=== PATIENT | female | born 1950 | race African-American/Black ===

== ENCOUNTER 2017-09-05 07:17 | Outpatient (CLI) | payer BC ==
--- NOTE | 2017-09-05 08:49 | Mammography Report ---
Screening mammogram: Routine views demonstrates an area of possible Asymmetry in the lateral left breast. This is not clearly identified in the lateral projection. With this exception the fibroglandular pattern is symmetric and otherwise unremarkable and unchanged from prior exams dating back to 2015. CAD used. Impression: Questionable new left asymmetry. Recommendation: Additional compression imaging and ultrasound as needed. BI-RADS CATEGORY: 0 = Needs additional imaging evaluation ACR BI-RADS MAMMOGRAPHIC CODES: 0 = Needs additional imaging evaluation; 1 = Negative; 2 = Benign; 3 = Probably benign; 4 = Suspicious; 5 = Malignant; 6 = Known biopsy-proven malignancy COMMENT: 1. Dense breast tissue, i.e., adenosis, fibrocystic changes, etc., may obscure an underlying neoplasm. 2. Approximately 10% of cancers are not detected with mammography. 3. A negative mammography report should not delay biopsy if a clinically suspicious mass is present.
== END 2017-09-05 07:18 | disposition home or self-care (01) ==
LOC: MAMMO 07:17
PROVIDERS: ATTEND Family Medicine
DX: Z12.31 Encounter for screening mammogram for malignant neoplasm of breast (principal)
CPT/HCPCS: 77067; G0202

== ENCOUNTER 2017-10-02 07:58 | Outpatient (CLI) | payer BC ==
--- NOTE | 2017-10-02 08:51 | Mammography Report ---
LEFT DIGITAL DIAGNOSTIC MAMMOGRAM : 10/02/17 07:58:00 CLINICAL: Recalled for asymmetry. COMPARISON:09/05/17 screening FINDINGS: ML and spot compression CC views were performed and are negative. IMPRESSION: Negative Mammogram. BI-RADS CATEGORY: 1 -- Negative RECOMMENDATION: Routine mammographic screening in one year. ACR BI-RADS MAMMOGRAPHIC CODES: 0 = Needs additional imaging evaluation; 1 = Negative; 2 = Benign; 3 = Probably benign; 4 = Suspicious; 5 = Malignant; 6 = Known biopsy-proven malignancy COMMENT: 1. Dense breast tissue, i.e., adenosis, fibrocystic changes, etc., may obscure an underlying neoplasm. 2. Approximately 10% of cancers are not detected with mammography. 3. A negative mammography report should not delay biopsy if a clinically suspicious mass is present. COMMENT: Patient follow-up letters are generated via our [employer] application.
== END 2017-10-02 07:59 | disposition home or self-care (01) ==
LOC: MAMMO 07:58
PROVIDERS: ATTEND Family Medicine
DX: R92.8 Other abnormal and inconclusive findings on diagnostic imaging of breast (principal)
CPT/HCPCS: G0206-LT

== ENCOUNTER 2019-08-20 07:51 | Outpatient (CLI) | payer BC ==
--- NOTE | 2019-08-23 10:20 | Mammography Report ---
DIGITAL SCREENING MAMMOGRAM WITH CAD, 08/20/2019 INDICATION: Routine screening mammography. TECHNIQUE: Digital bilateral 2D mammography was obtained in the craniocaudal and mediolateral obliq ue projections. This examination was interpreted with the benefit of Computer-Aided Detection analysi s. COMPARISON: 10/02/2017 FINDINGS: Breast Density: The breasts are heterogeneously dense, which may obscure small masses. There is no evidence of dominant mass, suspicious calcifications or architectural distortion in eithe r breast. IMPRESSION: No mammographic evidence of malignancy. Follow up recommendation: Routine yearly BI-RADS Category 2: Benign. A "normal" or negative report should not discourage follow up or biopsy of a clinically significant f inding. A written summary of these findings will be mailed to the patient. The patient will be entered into a mammography reporting system which will generate a reminder letter for the patient's next appointmen t at the appropriate interval. The [employer] recommends yearly mammograms starting at age 40 and continuing as l crystal as a woman is in good health. Breast MRI is recommended for women with an approximate 20-25% or greater lifetime risk of breast cancer, including women with a strong family history of breast or ova adeline cancer or who have been treated for Hodgkin's disease. Signer Name: Turner Mcfadden MD Signed: 08/23/2019 10:16 AM Workstation Name: [id number]
== END 2019-08-20 07:52 | disposition home or self-care (01) ==
LOC: MAMMO 07:51
PROVIDERS: ATTEND Family Medicine
DX: Z12.31 Encounter for screening mammogram for malignant neoplasm of breast (principal)
CPT/HCPCS: 77067

== ENCOUNTER 2020-09-25 07:33 | Outpatient (CLI) | payer BC ==
--- NOTE | 2020-09-25 08:40 | Mammography Report ---
DIGITAL SCREENING MAMMOGRAM WITH CAD, 09/25/2020 CLINICAL INFORMATION / INDICATION: Routine screening mammography. ROUTINE TECHNIQUE: Digital bilateral 2D mammography was obtained in the craniocaudal and mediolateral obliqu e projections. This examination was interpreted with the benefit of Computer-Aided Detection analysis . COMPARISON: 09/05/2017 and 08/20/2019 FINDINGS: Breast Density: There are scattered areas of fibroglandular density. No dominant mass, suspicious calcifications, or architectural distortion in either breast. There are bilateral vascular calcifications IMPRESSION: No mammographic evidence of malignancy. Follow up recommendation: Routine yearly BI-RADS Category 2: Benign. A "normal" or negative report should not discourage follow up or biopsy of a clinically significant f inding. A written summary of these findings will be mailed to the patient. The patient will be entered into a mammography reporting system which will generate a reminder letter for the patient's next appointmen t at the appropriate interval. The [employer] recommends yearly mammograms starting at age 40 and continuing as l crystal as a woman is in good health. Breast MRI is recommended for women with an approximate 20-25% or greater lifetime risk of breast cancer, including women with a strong family history of breast or ova adeline cancer or who have been treated for Hodgkin's disease. Signer Name: Evelio Mendoza MD Signed: 09/25/2020 8:35 AM Workstation Name: [id number]
== END 2020-09-25 07:34 | disposition home or self-care (01) ==
LOC: MAMMO 07:33
PROVIDERS: ATTEND Family Medicine
DX: Z12.31 Encounter for screening mammogram for malignant neoplasm of breast (principal); N64.89 Other specified disorders of breast
CPT/HCPCS: 77067

== ENCOUNTER 2021-10-11 08:06 | Outpatient (CLI) | payer BC ==
--- NOTE | 2021-10-11 13:22 | Mammography Report ---
DIGITAL SCREENING MAMMOGRAM WITH CAD, 10/11/2021 CLINICAL INFORMATION / INDICATION: Routine screening mammography. Z12.31 SCREENING TECHNIQUE: Digital bilateral 2D mammography was obtained in the craniocaudal and mediolateral obliqu e projections. This examination was interpreted with the benefit of Computer-Aided Detection analysis . COMPARISON: 04/26/2015 through 10/05/2020. FINDINGS: Breast Density: There are scattered areas of fibroglandular density. No dominant mass, suspicious calcifications, or architectural distortion in either breast. There are mild to moderate benign breast arterial calcifications bilaterally. Mild asymmetric breast tissue in the left lateral breast is stable. IMPRESSION: No mammographic evidence of malignancy. Follow up recommendation: Routine yearly BI-RADS Category 2: BENIGN. A "normal" or negative report should not discourage follow up or biopsy of a clinically significant f inding. A written summary of these findings will be mailed to the patient. The patient will be entered into a mammography reporting system which will generate a reminder letter for the patient's next appointmen t at the appropriate interval. The [employer] recommends yearly mammograms starting at age 40 and continuing as l crystal as a woman is in good health. Breast MRI is recommended for women with an approximate 20-25% or greater lifetime risk of breast cancer, including women with a strong family history of breast or ova adeline cancer or who have been treated for Hodgkin's disease. Signer Name: Cornelio Roldan MD Signed: 10/11/2021 1:17 PM Workstation Name: [id number]
== END 2021-10-11 08:07 | disposition home or self-care (01) ==
LOC: MAMMO 08:06
DX: Z12.31 Encounter for screening mammogram for malignant neoplasm of breast (principal); N64.89 Other specified disorders of breast
CPT/HCPCS: 77067